=== PATIENT | female | born 1970 | race Caucasian/White ===

== ENCOUNTER 2021-08-08 11:09 | Emergency (ER) | payer OTHER, MEDICARE ==
[~2021-08-08] VITALS: Ht 162.6 cm; Wt 84.1 kg
[2021-08-08] MEDS ORDERED: ACETAMINOPHEN 325 MG TAB PO ONE (13:25)
[2021-08-08] MEDS ORDERED: methocarbamoL 500 MG TAB PO ONE (13:25)
[2021-08-08] MEDS ORDERED: LIDOCAINE 5% (LIDODERM) PATCH TD ONE (13:25)
[2021-08-08 13:36] VITALS: BP 140/66
[2021-08-08] MEDS ORDERED: METH-1164 PO (13:44)
[2021-08-09] MEDS ORDERED: **NOTE PATIENT COMMENT** MISC XX ONE (02:00)
== END 2021-08-08 13:53 | disposition home or self-care (01) ==
LOC: M ED 11:09
DX: M51.9 Unspecified thoracic, thoracolumbar and lumbosacral intervertebral disc disorder (principal); S30.0XXA Contusion of lower back and pelvis, initial encounter; W22.8XXA Striking against or struck by other objects, initial encounter; Y92.89 Other specified places as the place of occurrence of the external cause; Y99.0 Civilian activity done for income or pay; K21.9 Gastro-esophageal reflux disease without esophagitis; H54.8 Legal blindness, as defined in USA; Z88.1 Allergy status to other antibiotic agents; Z88.2 Allergy status to sulfonamides; Z88.8 Allergy status to other drugs, medicaments and biological substances

== ENCOUNTER 2022-04-24 14:11 | Emergency (ER) | payer MEDICARE, OTHER ==
[~2022-04-24] VITALS: Ht 165.1 cm; Wt 81.8 kg
[~2022-04-24 14:11] MED LIST: METH-1164 PO
[2022-04-24] MEDS ORDERED: NS 1,000 ML IV SCH (14:55)
[2022-04-24 15:27] LABS: VENOUS BASE EXCESS -1.1 (-2.0-2.0); VENOUS HCO3 24.7 MEQ/L (23.0-27.0); VENOUS O2 SATURATION 73.7 % (60.0-80.0); VENOUS PARTIAL PRESSURE CO2 45.9 mmHg (38.0-50.0); VENOUS PARTIAL PRESSURE O2 41.2 mmHg (30.0-50.0); VENOUS PH 7.349 UNITS (7.330-7.430); VENOUS STANDARD HCO3 23.1 MEQ/L; VENOUS TOTAL CO2 26.1 MEQ/L (24.0-28.0)
[2022-04-24 15:30] LABS: BASO % 0.4 % (0.0-1.0); EOS # 0.1 10^3/uL (0.0-0.5); EOS % 2.3 % (0.0-3.0); HEMATOCRIT 33.8 % (36.0-47.0); HEMOGLOBIN 10.4 g/dl (12.0-15.5); LYMPH # 1.6 10^3/uL (1.5-5.0); LYMPH % 32.9 % (24.0-44.0); MEAN CORPUSCULAR HEMOGLOBIN 19.7 pg (27.0-33.0); MEAN CORPUSCULAR HGB CONC 30.8 g/dl (32.0-36.5); MONO # 0.4 10^3/uL (0.0-0.8); MONO % 7.8 % (2.0-8.0); NEUTROPHILS # 2.7 10^3/uL (1.5-8.5); PLATELET COUNT, AUTOMATED 241 10^3/uL (150-450); RED BLOOD COUNT 5.28 10^6/uL (4.00-5.40); WHITE BLOOD COUNT 4.9 10^3/uL (4.0-10.0)
[2022-04-24 16:00] LABS: ETHYL ALCOHOL (ETHANOL) < 0.003 % (0.000-0.010)
[2022-04-24 16:06] LABS: ALKALINE PHOSPHATASE 68 U/L (46-116); ALT/SGPT 40 U/L (7.0-40); AST/SGOT 59 U/L (<34); BILIRUBIN,DIRECT < 0.1 MG/DL (<0.4); BILIRUBIN,TOTAL 0.5 MG/DL (0.3-1.2); BLOOD UREA NITROGEN 9 MG/DL (9-23); CALCIUM LEVEL 8.9 MG/DL (8.5-10.1); CARBON DIOXIDE LEVEL 28 MMOL/L (20-31); CHLORIDE LEVEL 102 MMOL/L (98-107); CREATININE FOR GFR 0.63 MG/DL (0.55-1.30); GLOMERULAR FILTRATION RATE > 60.0 (>51); GLUCOSE, FASTING 83 MG/DL (60-100); POTASSIUM SERUM 5.7 MMOL/L (3.5-5.1); SODIUM LEVEL 138 MMOL/L (136-145); THYROID STIMULATING HORMONE 1.055 uIU/ML (0.55-4.78); TOTAL PROTEIN 7.1 G/DL (5.7-8.2)
[2022-04-24 16:07] LABS: OSMOLALITY SERUM 287 MOSM/KG (275-295)
[2022-04-24 16:26] LABS: AMPHETAMINES LEVEL URINE NEGATIVE (NEGATIVE); BARBITURATES URINE NEGATIVE (NEGATIVE); BENZODIAZEPINES URINE NEGATIVE (NEGATIVE); CANNABINOIDS URINE NEGATIVE (NEGATIVE); COCAINE METABOLITE URINE NEGATIVE (NEGATIVE); METHADONE URINE NEGATIVE (NEGATIVE); OPIATES URINE NEGATIVE (NEGATIVE); PHENCYCLIDINE URINE NEGATIVE (NEGATIVE)
[2022-04-24 16:45] VITALS: BP 131/82
== END 2022-04-24 16:59 | disposition home or self-care (01) ==
LOC: M ED 14:11
DX: R56.9 Unspecified convulsions (principal); Z88.2 Allergy status to sulfonamides; Z88.6 Allergy status to analgesic agent

== ENCOUNTER → 2022-07-28 | Outpatient (CLI) | payer MEDICARE ==
[2022-07-28 15:11] LABS: BASO % 0.5 % (0.0-1.0); EOS # 0.1 10^3/uL (0.0-0.5); EOS % 1.6 % (0.0-3.0); HEMATOCRIT 33.5 % (36.0-47.0); LYMPH # 1.4 10^3/uL (1.5-5.0); LYMPH % 37.5 % (24.0-44.0); MEAN CORPUSCULAR HEMOGLOBIN 19.3 pg (27.0-33.0); MEAN CORPUSCULAR HGB CONC 29.9 g/dl (32.0-36.5); MEAN CORPUSCULAR VOLUME 64.7 fl (80.0-96.0); MONO # 0.2 10^3/uL (0.0-0.8); NEUTROPHILS # 2.1 10^3/uL (1.5-8.5); NEUTROPHILS % 53.9 % (36.0-66.0); PLATELET COUNT, AUTOMATED 254 10^3/uL (150-450); RED BLOOD COUNT 5.18 10^6/uL (4.00-5.40); WHITE BLOOD COUNT 3.8 10^3/uL (4.0-10.0)
[2022-07-28 15:47] LABS: FREE T4 1.24 NG/DL (0.89-1.76); THYROID STIMULATING HORMONE 0.826 uIU/ML (0.55-4.78)
[2022-07-28 16:17] LABS: ALBUMIN 4.3 G/DL (3.2-5.2); ALKALINE PHOSPHATASE 84 U/L (46-116); ALT/SGPT 25 U/L (7.0-40); AST/SGOT 19 U/L (<34); BILIRUBIN,TOTAL 0.5 MG/DL (0.3-1.2); BLOOD UREA NITROGEN 10 MG/DL (9-23); CALCIUM LEVEL 8.6 MG/DL (8.5-10.1); CARBON DIOXIDE LEVEL 27 MMOL/L (20-31); CHLORIDE LEVEL 105 MMOL/L (98-107); CHOLESTEROL LEVEL 172 MG/DL (<200); CHOLESTEROL RISK RATIO 4.61 (<5); CREATININE FOR GFR 0.67 MG/DL (0.55-1.30); GLOMERULAR FILTRATION RATE > 60.0 (>51); GLUCOSE, FASTING 88 MG/DL (60-100); HDL CHOLESTEROL 37.3 MG/DL (>40); LDL CHOLESTEROL 101.1 MG/DL (<100); NON-HDL-C 134.7 MG/DL; POTASSIUM SERUM 4.9 MMOL/L (3.5-5.1); SODIUM LEVEL 140 MMOL/L (136-145); TOTAL PROTEIN 6.9 G/DL (5.7-8.2); TRIGLYCERIDES LEVEL 168 MG/DL (<150)
== END ==
LOC: M PLALAB 10:41
PROVIDERS: ATTEND Student in an Organized Health Care Education/Training Program
DX: R53.83 Other fatigue (principal); K90.41 Non-celiac gluten sensitivity

== ENCOUNTER 2022-10-22 10:11 | Day surgery (SDC) | payer MEDICARE ==
[~2022-10-22] VITALS: Ht 162.6 cm; Wt 83.0 kg
[~2022-10-22 10:11] MED LIST changes: +LIDOCAINE 2% 100MG/5ML SDV (FOR ANES.) As Ordered ONE; +NS 1,000 ML IV ONE; +VIT1TABL25 PO; +VITA-168 PO; +propofoL 200 MG/20 ML VIAL As Ordered ONE
[2022-10-22] MEDS ORDERED: fentaNYL 100 MCG/2 ML INJECTION As Ordered ONE (10:31)
[2022-10-22] MEDS ORDERED: propofoL 200 MG/20 ML VIAL As Ordered ONE (11:15)
[2022-10-22 12:10] VITALS: BP 130/70; TEMP 97.8; O2SAT 97
== END 2022-10-22 12:44 | disposition home or self-care (01) ==
LOC: M OPP 10:11
PROVIDERS: ATTEND Internal Medicine Gastroenterology
DX: Z12.11 Encounter for screening for malignant neoplasm of colon (principal); K64.4 Residual hemorrhoidal skin tags; K64.8 Other hemorrhoids; K25.9 Gastric ulcer, unspecified as acute or chronic, without hemorrhage or perforation; G47.33 Obstructive sleep apnea (adult) (pediatric); Z88.2 Allergy status to sulfonamides; Z88.6 Allergy status to analgesic agent
CPT/HCPCS: 43239; 88305; G0121; J3010

== ENCOUNTER → 2022-10-28 | Outpatient (CLI) | payer MEDICARE ==
[~2022-10-28] MED LIST changes: -LIDOCAINE 2% 100MG/5ML SDV (FOR ANES.) As Ordered ONE; -NS 1,000 ML IV ONE; -propofoL 200 MG/20 ML VIAL As Ordered ONE
[2022-10-28 14:01] LABS: BASO % 0.6 % (0.0-1.0); EOS # 0.1 10^3/uL (0.0-0.5); EOS % 1.2 % (0.0-3.0); HEMOGLOBIN 10.9 g/dl (12.0-15.5); LYMPH # 1.3 10^3/uL (1.5-5.0); LYMPH % 25.2 % (24.0-44.0); MEAN CORPUSCULAR HEMOGLOBIN 19.6 pg (27.0-33.0); MEAN CORPUSCULAR HGB CONC 30.3 g/dl (32.0-36.5); MEAN CORPUSCULAR VOLUME 64.6 fl (80.0-96.0); MONO # 0.4 10^3/uL (0.0-0.8); NEUTROPHILS # 3.4 10^3/uL (1.5-8.5); NEUTROPHILS % 65.4 % (36.0-66.0); PLATELET COUNT, AUTOMATED 251 10^3/uL (150-450); RED BLOOD COUNT 5.57 10^6/uL (4.00-5.40); WHITE BLOOD COUNT 5.2 10^3/uL (4.0-10.0)
[2022-10-28 14:33] LABS: PERCENT SATURATION 26.6 % (13.2-45.0)
[2022-10-28 14:35] LABS: FERRITIN 50.2 NG/ML (7.3-270.7)
== END ==
LOC: M PLALAB 11:04
PROVIDERS: ATTEND Student in an Organized Health Care Education/Training Program
DX: D56.3 Thalassemia minor (principal)

== ENCOUNTER 2023-12-21 22:27 | Emergency (ER) | payer MEDICARE, SELFPAY ==
[~2023-12-21] VITALS: Ht 162.6 cm; Wt 77.3 kg
[~2023-12-21 22:27] MED LIST changes: +VITAMIN B GUMMIES PO; +[UNRECOGNIZED DRUG - OTHER]
[2023-12-22] MEDS: MORPHINE 2 MG/ML 1ML VIAL IV ONE (00:41)
[2023-12-22 00:56] LABS: BASO % 0.5 % (0.0-1.0); EOS # 0.1 10^3/uL (0.0-0.5); EOS % 1.9 % (0.0-3.0); HEMATOCRIT 33.2 % (36.0-47.0); HEMOGLOBIN 10.4 g/dl (12.0-15.5); LYMPH # 2.2 10^3/uL (1.5-5.0); LYMPH % 34.3 % (24.0-44.0); MEAN CORPUSCULAR HEMOGLOBIN 20.1 pg (27.0-33.0); MEAN CORPUSCULAR HGB CONC 31.3 g/dl (32.0-36.5); MEAN CORPUSCULAR VOLUME 64.1 fl (80.0-96.0); MONO # 0.5 10^3/uL (0.0-0.8); MONO % 7.2 % (2.0-8.0); NEUTROPHILS # 3.5 10^3/uL (1.5-8.5); NEUTROPHILS % 55.6 % (36.0-66.0); PLATELET COUNT, AUTOMATED 216 10^3/uL (150-450); RED BLOOD COUNT 5.18 10^6/uL (4.00-5.40); WHITE BLOOD COUNT 6.3 10^3/uL (4.0-10.0)
[2023-12-22 01:15] LABS: BLOOD UREA NITROGEN 12 MG/DL (9-23); CALCIUM LEVEL 9.3 MG/DL (8.5-10.1); CARBON DIOXIDE LEVEL 28 MMOL/L (20-31); CHLORIDE LEVEL 105 MMOL/L (98-107); CREATININE FOR GFR 0.65 MG/DL (0.55-1.30); GLOMERULAR FILTRATION RATE > 60.0 (>51); GLUCOSE, FASTING 102 MG/DL (60-100); POTASSIUM SERUM 4.4 MMOL/L (3.5-5.1); SODIUM LEVEL 138 MMOL/L (136-145)
[2023-12-22 03:17] VITALS: BP 134/75; TEMP 97.6; O2SAT 98
== END 2023-12-22 03:20 | disposition home or self-care (01) ==
LOC: M ED 22:27
DX: R23.3 Spontaneous ecchymoses (principal); S00.83XA Contusion of other part of head, initial encounter; W10.8XXA Fall (on) (from) other stairs and steps, initial encounter; D56.3 Thalassemia minor; J45.909 Unspecified asthma, uncomplicated; Z88.2 Allergy status to sulfonamides; Z88.6 Allergy status to analgesic agent; Z88.8 Allergy status to other drugs, medicaments and biological substances; Z79.899 Other long term (current) drug therapy; Y92.009 Unspecified place in unspecified non-institutional (private) residence as the place of occurrence of the external cause; Y93.89 Activity, other specified; Y99.9 Unspecified external cause status

== ENCOUNTER → 2024-11-24 | Outpatient (REF) | payer MEDICARE | LOC: M SFHCLERA 17:12 | PROVIDERS: ATTEND Student in an Organized Health Care Education/Training Program | DX: R09.89 Other specified symptoms and signs involving the circulatory and respiratory systems (principal) ==

== ENCOUNTER → 2024-12-13 | Outpatient (CLI) | payer MEDICARE | LOC: M SLEEP HO 11:03 | PROVIDERS: ATTEND Student in an Organized Health Care Education/Training Program | DX: R06.83 Snoring (principal); G47.30 Sleep apnea, unspecified ==